=== PATIENT | female | born 1940 | race Caucasian/White ===

== ENCOUNTER → 2020-05-28 | Day surgery (SDC) | payer OTHER ==
[2020-05-27 15:46] VITALS: BMI 26.5
[~2020-05-28] MED LIST: ACETAMINOPHEN 325 MG TABLET (FP) PO PRN; ACETYLCHOLINE 1:100 INTRA-OCUL 20 MG/2 ML KIT ONE; BSS (NA/CA/MG/K) BALANCED SALT SOLUTION OPHTH SOLN 15 ML BOTTLE OD ONE; BSS (NA/CA/MG/K) BALANCED SALT SOLUTION OPHTH SOLN 15 ML BOTTLE ONE; CHONDROITIN SU A/HYALUR SOD 1 KIT IO ONE; CHONDROITIN SU A/HYALUR SOD 1 KIT ONE; CYCLOPENTOLATE HCL 1% OPHTH SOLN 2 ML BOTTLE OD ONE; CYCLOPENTOLATE HCL 1% OPHTH SOLN 2 ML BOTTLE ONE; EPINEPHrine/PF 1 MG/1 ML (1:1,000) AMPULE SQ ONE; KETOROLAC TROMETHAMINE 0.5% EYE DROP 1 DROP DROPS OD ONE; KETOROLAC TROMETHAMINE 0.5% EYE DROP 1 DROP DROPS ONE; LIDOCAINE HCL 1% PRESERVATIVE FREE - 30ML VIAL IO ONE; LIDOCAINE HCL/PF 1% SDV 5ML VIAL ONE; LIDOCAINE HCL/PF 2% SDV 5ML VIAL ONE; MIDAZOLAM HCL 2 MG/2 ML SINGLE DOSE VIAL ONE; OFLOXACIN 0.3% OPHTHALMIC SOLUTION 5 ML BOTTLE OD ONE; OFLOXACIN 0.3% OPHTHALMIC SOLUTION 5 ML BOTTLE ONE; PHENYLEPHRINE 2.5% OPHTH SOLN 15 ML BOTTLE OD ONE; POVIDONE-IODINE 5% OPHTHALMIC PREP 30 ML SOLUTION OD ONE; POVIDONE-IODINE 5% OPHTHALMIC PREP 30 ML SOLUTION ONE; PROPOFOL 20 ML ONE; TETRACAINE 0.5% OPHTH SOLN 2 ML BOTTLE ONE; TETRACAINE 0.5% OPHTH SOLN 2 ML BOTTLE TP ONE; TROPICAMIDE 1% OPHTH SOLN 15 ML BOTTLE OD ONE; TROPICAMIDE 1% OPHTH SOLN 15 ML BOTTLE ONE; TRYPAN BLUE 0.5 ML DISP.SYRIN IO ONE; TRYPAN BLUE 0.5 ML DISP.SYRIN ONE
[2020-05-28] MEDS: TROPICAMIDE 1% OPHTH SOLN 15 ML BOTTLE OP SCH ×2 (08:05→08:18)
[2020-05-28] MEDS: CYCLOPENTOLATE HCL 1% OPHTH SOLN 2 ML BOTTLE OP SCH ×2 (08:05→08:18)
[2020-05-28] MEDS: PHENYLEPHRINE 2.5% OPHTH SOLN 15 ML BOTTLE OP SCH ×2 (08:05→08:18)
[2020-05-28] MEDS: OFLOXACIN 0.3% OPHTHALMIC SOLUTION 5 ML BOTTLE OP SCH ×2 (08:05→08:18)
[2020-05-28] MEDS: KETOROLAC TROMETHAMINE 0.5% EYE DROP 1 DROP DROPS OP SCH ×2 (08:05→08:18)
[2020-05-28 11:12] VITALS: BP 132/52; PULSE 70; TEMP 97.8
--- NOTE | 2020-05-29 10:04 | OP ---
DATE OF OPERATION: DATE OF DICTATION: 05/28/2020 PREOPERATIVE DIAGNOSIS: Cataract, right eye. ASSOCIATIVE DIAGNOSES: 1. Persistent myosis. 2. 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 OPERATION: Phacoemulsification of right cataract with capsular staining with Trypan blue, pupil expansion with iris hooks and posterior chamber intraocular lens implantation, the lens used [id number], 22.5-diopter power, serial number [id number]. SURGEON: Mehrdad Reza MD ANESTHESIA: Topical MAC. COMPLICATIONS: None. PROCEDURE: The patient was brought to the operating room and correctly identified along with the operative site as well as correct intraocular lens power. She was then prepped and draped in the usual sterile fashion including 5% Betadine solution in the conjunctival sac and an eyelid drape. An eyelid speculum was then placed into the right eye. The pupil was inspected and measured approximately 4.5 mm. A paracentesis port was created and 0.5 mL of preservative-free lidocaine 1% was given intracamerally. An air bubble was then placed in the eye and the anterior capsule stained with Trypan blue. The remaining 0.5 mL of the preservative-free lidocaine was given to irrigate the Trypan blue from the eye. Viscoelastic was placed in the eye in an attempt to viscodissect the pupil. However, the pupil was not expanded any further. A temporal clear corneal wound was created and 5 additional paracenteses ports were created. Pupil was then expanded using 5 iris hooks and a continuous circular capsulorrhexis was then performed. The nucleus was then hydrodissected with BSS and removed with phacoemulsification via [id number] approach. The cortical material was irrigated and aspirated from the eye. Viscoelastic was injected to inflate the capsular bag. The lens was injected into the bag. The iris hooks were then removed from the eye. All wounds were stromal hydrated and the viscoelastic was irrigated and aspirated from the eye. At the end of the procedure, the intraocular lens was noted to be covered by the anterior capsular border and well centered. There was no leaking noted from any of the wounds. Topical vancomycin given, the eye patched and shielded, and the patient discharged from the operating room in a stable condition. MEHRDAD REZA M.D. [id number]
== END | disposition home or self-care (01) ==
LOC: JASU-SURG 06:57
PROVIDERS: ATTEND Ophthalmology
PROC: 08RJ3JZ Replacement of Right Lens with Synthetic Substitute, Percutaneous Approach (ICD-10-PCS; principal; 2020-05-28 09:00)
DX: H26.9 Unspecified cataract (principal); H57.03 Miosis; H40.20X0 Unspecified primary angle-closure glaucoma, stage unspecified

== ENCOUNTER 2020-06-11 06:18 | Day surgery (SDC) | payer OTHER ==
[2020-06-10 15:23] VITALS: BMI 25.6
[~2020-06-11 06:18] MED LIST changes: -ACETAMINOPHEN 325 MG TABLET (FP) PO PRN; -ACETYLCHOLINE 1:100 INTRA-OCUL 20 MG/2 ML KIT ONE; -BSS (NA/CA/MG/K) BALANCED SALT SOLUTION OPHTH SOLN 15 ML BOTTLE OD ONE; -BSS (NA/CA/MG/K) BALANCED SALT SOLUTION OPHTH SOLN 15 ML BOTTLE ONE; +BSS (NA/CA/MG/K) BALANCED SALT SOLUTION OPHTH SOLN 15 ML BOTTLE OS ONE; -CHONDROITIN SU A/HYALUR SOD 1 KIT ONE; -CYCLOPENTOLATE HCL 1% OPHTH SOLN 2 ML BOTTLE OD ONE; -CYCLOPENTOLATE HCL 1% OPHTH SOLN 2 ML BOTTLE ONE; -KETOROLAC TROMETHAMINE 0.5% EYE DROP 1 DROP DROPS OD ONE; -KETOROLAC TROMETHAMINE 0.5% EYE DROP 1 DROP DROPS ONE; -LIDOCAINE HCL/PF 1% SDV 5ML VIAL ONE; -LIDOCAINE HCL/PF 2% SDV 5ML VIAL ONE; -MIDAZOLAM HCL 2 MG/2 ML SINGLE DOSE VIAL ONE; -OFLOXACIN 0.3% OPHTHALMIC SOLUTION 5 ML BOTTLE OD ONE; -OFLOXACIN 0.3% OPHTHALMIC SOLUTION 5 ML BOTTLE ONE; -PHENYLEPHRINE 2.5% OPHTH SOLN 15 ML BOTTLE OD ONE; -POVIDONE-IODINE 5% OPHTHALMIC PREP 30 ML SOLUTION OD ONE; -POVIDONE-IODINE 5% OPHTHALMIC PREP 30 ML SOLUTION ONE; +POVIDONE-IODINE 5% OPHTHALMIC PREP 30 ML SOLUTION OS ONE; -PROPOFOL 20 ML ONE; -TETRACAINE 0.5% OPHTH SOLN 2 ML BOTTLE ONE; -TROPICAMIDE 1% OPHTH SOLN 15 ML BOTTLE OD ONE; -TROPICAMIDE 1% OPHTH SOLN 15 ML BOTTLE ONE; -TRYPAN BLUE 0.5 ML DISP.SYRIN IO ONE; -TRYPAN BLUE 0.5 ML DISP.SYRIN ONE
[2020-06-11] MEDS: KETOROLAC TROMETHAMINE 0.5% EYE DROP 1 DROP DROPS ONE ×3 (06:45→07:15)
[2020-06-11] MEDS: CYCLOPENTOLATE HCL 1% OPHTH SOLN 2 ML BOTTLE ONE ×3 (06:45→07:15)
[2020-06-11] MEDS: TROPICAMIDE 1% OPHTH SOLN 15 ML BOTTLE ONE ×3 (06:45→07:15)
[2020-06-11] MEDS: OFLOXACIN 0.3% OPHTHALMIC SOLUTION 5 ML BOTTLE ONE ×2 (06:45→07:15)
[2020-06-11] MEDS ORDERED: OFLOXACIN 0.3% OPHTHALMIC SOLUTION 5 ML BOTTLE OS ONE (07:00)
[2020-06-11] MEDS ORDERED: CHONDROITIN SU A/HYALUR SOD 1 KIT ONE (07:06)
[2020-06-11] MEDS ORDERED: VANCOMYCIN 500 MG VIAL (RESTRICTED TO ID ONLY) ONE (07:11)
[2020-06-11] MEDS ORDERED: EPINEPHrine/PF 1 MG/1 ML (1:1,000) AMPULE ONE ×2 (07:11→09:53)
[2020-06-11] MEDS ORDERED: LIDOCAINE HCL/PF 1% SDV 5ML VIAL ONE (07:12)
[2020-06-11] MEDS ORDERED: BSS (NA/CA/MG/K) BALANCED SALT SOLUTION OPHTH SOLN 15 ML BOTTLE ONE (07:12)
[2020-06-11] MEDS ORDERED: TETRACAINE 0.5% OPHTH SOLN 2 ML BOTTLE ONE (07:12)
[2020-06-11] MEDS ORDERED: WATER FOR INJ,STERILE 10 ML ONE (07:12)
[2020-06-11] MEDS ORDERED: POVIDONE-IODINE 5% OPHTHALMIC PREP 30 ML SOLUTION ONE (07:13)
[2020-06-11] MEDS ORDERED: MIDAZOLAM HCL 2 MG/2 ML SINGLE DOSE VIAL ONE (07:59)
[2020-06-11] MEDS ORDERED: SUCCINYLCHOLINE CHLORIDE 200 MG/10 ML SYRINGE ONE (08:00)
[2020-06-11] MEDS ORDERED: MANNITOL 25% 12.5 GM/50 ML VIAL IVPB ONE (08:18)
[2020-06-11] MEDS ORDERED: TETRACAINE 0.5% OPHTH SOLN 2 ML BOTTLE TP ONE (08:30)
[2020-06-11] MEDS ORDERED: POVIDONE-IODINE 5% OPHTHALMIC PREP 30 ML SOLUTION OS ONE (08:33)
[2020-06-11] MEDS ORDERED: CHONDROITIN SU A/HYALUR SOD 1 KIT IO ONE (08:40)
[2020-06-11] MEDS ORDERED: TRYPAN BLUE 0.5 ML DISP.SYRIN IO ONE (08:40)
[2020-06-11] MEDS ORDERED: BSS (NA/CA/MG/K) BALANCED SALT SOLUTION OPHTH SOLN 15 ML BOTTLE OS ONE (08:40)
[2020-06-11] MEDS ORDERED: LIDOCAINE HCL 1% PRESERVATIVE FREE - 30ML VIAL IO ONE (08:40)
[2020-06-11] MEDS ORDERED: EPINEPHrine/PF 1 MG/1 ML (1:1,000) AMPULE SQ ONE (08:49)
[2020-06-11] MEDS ORDERED: ACETAMINOPHEN 325 MG TABLET (FP) ONE (09:49)
[2020-06-11] MEDS ORDERED: ACETAMINOPHEN 325 MG TABLET (FP) PO ONE (10:01)
[2020-06-11 10:42] VITALS: BP 155/71; PULSE 63; TEMP 97.7
--- NOTE | 2020-06-12 07:06 | OP ---
DATE OF OPERATION: 06/11/2020 PREOPERATIVE DIAGNOSIS: Cataract, left eye. 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 PROCEDURE: Phacoemulsification of left cataract with capsule stained with trypan blue and posterior chamber intraocular lens implantation. The lens used [id number], 22.5 diopter power, serial number [id number]. ANESTHESIA: Topical, MAC. COMPLICATIONS: None. PROCEDURE: The patient was brought to the operating room and correctly identified along with the operative site as well as correct intraocular lens power. She was then prepped and draped in the usual sterile fashion including 5% Betadine solution in the conjunctival sac and an eyelid drape. An eyelid speculum was then placed into the left eye. A paracentesis was created, and then 0.5 mL of intracameral lidocaine 1% preservative free was given. Beneath an air bubble, the capsule was then stained with the trypan blue and irrigated with 0.5 mL of the 1%preservative free lidocaine.Viscoelastic was injected to inflate the anterior chamber as well as Viscoat to dilate the pupil. A temporal clear corneal wound was created. The pupil was noted to be approximately 5 mm after viscodilation, so the decision not to use iris hooks as the cataract surgery in the right eye of the patient, was made. A continuous circular capsulorrhexis was successfully performed, and the nucleus was then hydrodissected, hydrodelineated with BSS and removed with phacoemulsification. There was a small amount of epinuclear/cortical material noted. Upon attempt at removal, there was no sign of flow into the irrigation/aspiration tip and the phacoemulsification unit was pinging, signifying a complete occlusion in the tip. The tip was brought out and attempt to clear it by forcing fluid in both ports was made; however, this did not work as again, the cortical/epinuclear material would not come to the tip and again a complete occlusion was noted by pinging. The tip was then changed, and unfortunately, still no aspiration was noted. The tubing was then changed in the machine, and still no aspiration was noted. The Decision was then made to get the backup phaco machine, and again this did not yield any aspiration/flow in the coaxial IA handpiece. Bimanual IA was then initiated. Using the main incision as an irrigation and a paracentesis ort with an aspiration port, the epinucleus and cortical material were removed. A second paracentesis was required to clear out the subincisional cortex. Viscoelastic was injected to inflate the capsular bag. The lens was injected in the capsular bag. The viscoelastic was then irrigated and aspirated using bimanual irrigation. All wounds were stromal hydrated and tested and found to be watertight. No sutures were placed. Topical vancomycin given, the eye patched and shielded and the patient discharged from the operating room in a stable condition. MEHRDAD REZA M.D. [id number]
== END 2020-06-11 11:10 | disposition home or self-care (01) ==
LOC: JASU-SURG 06:18
PROVIDERS: ATTEND Ophthalmology
PROC: 08RK3JZ Replacement of Left Lens with Synthetic Substitute, Percutaneous Approach (ICD-10-PCS; principal; 2020-06-11 08:00)
DX: H26.9 Unspecified cataract (principal); H57.03 Miosis; H40.20X0 Unspecified primary angle-closure glaucoma, stage unspecified

== ENCOUNTER 2023-12-01 04:26 | Day surgery (SDC) | payer OTHER ==
[2023-11-25 11:31] VITALS: BMI 24.0
[2023-12-01 12:45] VITALS: TEMP 98.1
[2023-12-01 13:03] VITALS: RESP 14
[2023-12-01 14:18] VITALS: BP 130/62; PULSE 65
== END 2023-12-01 13:35 | disposition home or self-care (01) ==
LOC: JASU-ENDO 04:26
PROVIDERS: ATTEND Internal Medicine Gastroenterology
PROC: 0DB68ZX Excision of Stomach, Via Natural or Artificial Opening Endoscopic, Diagnostic (ICD-10-PCS; 2023-12-01)
PROC: 0DB78ZX Excision of Stomach, Pylorus, Via Natural or Artificial Opening Endoscopic, Diagnostic (ICD-10-PCS; 2023-12-01)
PROC: 0DJD8ZZ Inspection of Lower Intestinal Tract, Via Natural or Artificial Opening Endoscopic (ICD-10-PCS; principal; 2023-12-01 11:00)
DX: Z12.11 Encounter for screening for malignant neoplasm of colon (principal); K64.8 Other hemorrhoids; K57.30 Diverticulosis of large intestine without perforation or abscess without bleeding; K29.50 Unspecified chronic gastritis without bleeding; I10 Essential (primary) hypertension
CPT/HCPCS: 43239; G0121; 88305-TC; 88342-TC

== ENCOUNTER 2024-11-29 14:28 | Emergency (ER) | payer OTHER ==
[2024-11-29 14:43] VITALS: BP 149/70; PULSE 76; RESP 18; TEMP 98; BMI 24.3
[2024-11-29] MEDS ORDERED: MAG HYDROX/AL HYDROX/SIMETH 30 ML UNIT-DOSE CUP ONE (15:48)
[2024-11-29] MEDS ORDERED: ACETAMINOPHEN INJECTION 100 ML ONE (15:48)
[2024-11-29] MEDS ORDERED: FAMOTIDINE 20 MG/50 ML IVPB 20 MG/50 ML MG IVPB ONE (15:48)
[2024-11-29] MEDS: ACETAMINOPHEN 1000 MG/100 ML BAG IVPB ONE (16:09)
[2024-11-29] MEDS: FAMOTIDINE 20 MG/50 ML IVPB 20 MG/50 ML MG IVPB ONE (16:09)
[2024-11-29] MEDS: MAG HYDROX/AL HYDROX/SIMETH 30 ML UNIT-DOSE CUP PO ONE (16:09)
[2024-11-29] MEDS: SODIUM CHLORIDE 0.9% 500 ML INFUS.BAG IV ONE (16:19)
[2024-11-29 16:21] LABS: BASO % 0.8 % (0-2.0); EOS % 4.2 % (0-4.5); HEMATOCRIT 40.2 % (32.4-45.2); HEMOGLOBIN 13.2 GM/dL (10.7-15.3); MCH 28.2 pg (25.7-33.7); MCHC 32.8 g/dl (32.0-36.0); MEAN CELL VOLUME 86.1 fl (80-96); MEAN PLT VOLUME 7.5 fl (7.5-11.1); MONO % 9.1 % (3.8-10.2); NEUT % 53.9 % (42.8-82.8); PLATELET COUNT 428 10^3/uL (134-434); RBC 4.68 M/mm3 (3.60-5.2); RDW 14.4 % (11.6-15.6); WHITE BLOOD COUNT 10.3 K/mm3 (4.0-10.0)
[2024-11-29 16:26] LABS: INR 1.01 (0.83-1.09); PROTHROMBIN TIME (PATIENT) 11.4 SEC (9.7-13.0)
[2024-11-29 16:29] LABS: ACTIVATED PTT 33.5 SECONDS (25.2-36.5)
[2024-11-29 16:45] LABS: EPI CELLS 21 /uL (0-25.1); HYALINE CASTS 3 /uL (0-3.1); URINE APPEARANCE CLEAR; URINE BACTERIA 1774 /uL (0-1359); URINE BILIRUBIN NEGATIVE (NEGATIVE); URINE COLOR YELLOW; URINE GLUCOSE (UA) NEGATIVE (NEGATIVE); URINE KETONE TRACE (NEGATIVE); URINE LEUK ESTERASE 1+ (NEGATIVE); URINE NITRITE NEGATIVE (NEGATIVE); URINE PROTEIN NEGATIVE (NEGATIVE); URINE RBC 24 /uL (0-23.9); URINE UROBILINOGEN 0.2 mg/dL (0.2-1.0); URINE WBC 50 /uL (0-25.8)
[2024-11-29 17:02] LABS: POTASSIUM 5.1 mmol/L (3.5-5.1)
[2024-11-29 17:04] LABS: ALBUMIN 3.7 g/dl (3.4-5.0); CALCIUM 9.6 mg/dL (8.5-10.1)
[2024-11-29 17:05] LABS: MAGNESIUM 2.4 mg/dL (1.8-2.4)
[2024-11-29 17:08] LABS: CREATININE 1.5 mg/dL (0.55-1.3)
[2024-11-29 17:09] LABS: BILIRUBIN,TOTAL 0.3 mg/dL (0.2-1); TOT PROT 6.8 g/dl (6.4-8.2)
[2024-11-29] MEDS ORDERED: CEFTRIAXONE 1 G/50 ML PREMIX 50 ML IVPB ONE (19:11)
[2024-11-29] MEDS: CEFTRIAXONE 1 GM in DEXTROSE 5%-WATER - 100 ML IVPB ONE (19:12)
== END 2024-11-29 20:31 | disposition home or self-care (01) ==
LOC: JER 14:28
PROC: 3E03329 Introduction of Other Anti-infective into Peripheral Vein, Percutaneous Approach (ICD-10-PCS; principal; 2024-11-29)
PROC: 3E033GC Introduction of Other Therapeutic Substance into Peripheral Vein, Percutaneous Approach (ICD-10-PCS; 2024-11-29)
PROC: 3E033NZ Introduction of Analgesics, Hypnotics, Sedatives into Peripheral Vein, Percutaneous Approach (ICD-10-PCS; 2024-11-29)
DX: N39.0 Urinary tract infection, site not specified (principal); K59.00 Constipation, unspecified; R10.13 Epigastric pain
CPT/HCPCS: 36415; 71045-TC-FY; 74176-TC; 76705-TC; 80053; 81003; 83690; 83735; 84484; 85025; 85610; 85730; 86850; 86900; 86901; 87086; 93005; 93010; 99285-25; J0131